=== PATIENT | female | born 1980 | race Caucasian/White ===

== ENCOUNTER 2017-09-11 00:47 | Emergency (ER) | payer OTHER ==
[~2017-09-11] VITALS: Ht 162.6 cm; Wt 113.4 kg
== END 2017-09-11 01:59 | disposition home or self-care (01) ==
LOC: ER 00:47
DX: R10.11 Right upper quadrant pain (principal); R19.7 Diarrhea, unspecified; K80.70 Calculus of gallbladder and bile duct without cholecystitis without obstruction
CPT/HCPCS: 81025; 99283